=== PATIENT | male | born 1965 | race Caucasian/White ===

== ENCOUNTER 2016-07-04 20:54 | Emergency (ER) | payer SELFPAY ==
[2016-07-04] MEDS ORDERED: predniSONE 10 MG TABLET PO ONE (21:07)
--- NOTE | 2016-07-04 21:10 | ED Physician Documentation ---
General Adult - HISTORIAN Historian: patient - HPI Stated Complaint: insect bites Chief Complaint: General Adult Additional Information: Insect bites on arms, back, abdomen for two days. Pruritic. Cassi Savage for 4 days prior. Has been using Calamine, bleach water, oatmeal soap , w/o relief. - ROS CONST: no problems - PAST HX Past History: none - SOCIAL HX Smoking History: cigarettes Alcohol Use: heavy (12 beers daily) - FAMILY HX Family History: No - REVIEWED ASSESSMENTS Nursing Assessment Reviewed: Yes Vitals Reviewed: Yes ED Results Lab/Radiology - Orders Orders: ED Orders Category Date Time Status predniSONE [Deltasone] Med 07/04/16 21:07 Once 30 mg PO NOW ONE General Adult Physical Exam - PHYSICAL EXAM GENERAL APPEARANCE: mild distress EENT: eye inspection normal, ENT inspection normal NECK: normal inspection, supple RESPIRATORY: no resp distress RECTAL: deferred BACK: normal inspection SKIN: warm/dry, normal color, other (scabbed erythematous lesions on forearms. Up to 1 cm diameter. Raised wheals scattered on back and low abdomen up to 1.5 cm diameter. ) EXTREMITIES: normal range of motion (gait), no evidence of injury NEURO: CN's nml as tested, motor nml, sensation nml Discharge Clincal Impression: Insect bites Referrals: Primary Doctor,No [Primary Care Provider] - 2 Days Additional Instructions: Return to the ER if you are not getting better in two days. Calamine lotion is fine. Condition: Good Disposition: 01 HOME, SELF-CARE Decision to Admit: NO Decision Time: 21:09
[2016-07-04 21:40] VITALS: BP 151/97
== END 2016-07-04 21:15 | disposition home or self-care (01) ==
LOC: ED 20:54
DX: S50.869A Insect bite (nonvenomous) of unspecified forearm, initial encounter (principal); X58.XXXA Exposure to other specified factors, initial encounter; Y93.9 Activity, unspecified; Y99.9 Unspecified external cause status
CPT/HCPCS: 99283; J7512